=== PATIENT | female | born 1995 ===

== ENCOUNTER 2017-08-23 17:33 | Emergency (ER) | payer OTHER ==
[2017-08-23 18:16] VITALS: BP 133/82; PULSE 83; RESP 16; TEMP 98.7; O2SAT 97
--- NOTE | 2017-08-23 20:21 | ED PDOC ---
HPI: Abdomen Time Seen by Provider: 08/23/17 18:36 Chief Complaint (Nursing): Abdominal Pain Chief Complaint (Provider): abdominal pain History Per: Patient History/Exam Limitations: no limitations Additional Complaint(s): 22yo F in ED for eval of various complaints. Pt came from [place]. Pt was dx with dysautonomia, cyst vs adenoma in brain on MRI in 2014. PT in ED for 2 week with right arm pain swelling and redness after "popping" a cyst in her forearm. denies fever chills nausea or vomiting. PT not on control. no recent travel in past 3 months, no bleeding d/o or recent surgeries. pt states pain radiates up and down her right arm without radiation to chest. PT also c/o of irregular menstrual, persistent lactohrea and sciatic like pain on left LE x >6months. Abnormal Vaginal Bleeding: No Last Menstral Period: 2 weeks ago Past Medical History Reviewed: Historical Data, Nursing Documentation, Vital Signs Vital Signs: Last Vital Signs Temp 98.7 F 08/23/17 18:12 Pulse 83 08/23/17 18:12 Resp 16 08/23/17 18:12 BP 133/82 08/23/17 18:12 Pulse Ox 97 08/23/17 18:12 - Family History Family History: States: No Known Family Hx - Allergies Allergies/Adverse Reactions: Allergies Allergy/AdvReac Type Severity Reaction Status Date / Time No Known Allergies Allergy Verified 08/23/17 18:12 Review of Systems ROS Statement: Except As Marked, All Systems Reviewed And Found Negative Constitutional: Negative for: Fever, Chills Physical Exam - Reviewed Nursing Documentation Reviewed: Yes Vital Signs Reviewed: Yes - Physical Exam Appears: Positive for: Well, Non-toxic, No Acute Distress Head Exam: Positive for: ATRAUMATIC, NORMAL INSPECTION, NORMOCEPHALIC Skin: Positive for: Normal Color, Warm, DRY Eye Exam: Positive for: EOMI, Normal appearance, PERRL ENT: Positive for: Normal ENT Inspection Neck: Positive for: Normal, Painless ROM Cardiovascular/Chest: Positive for: Regular Rate, Rhythm Respiratory: Positive for: CNT, Normal Breath Sounds Gastrointestinal/Abdominal: Positive for: Normal Exam, Bowel Sounds, Soft. Negative for: Tenderness Back: Positive for: Normal Inspection Extremity: Positive for: Other (right arm: no bdonoraml swelling noted, mild spasm noted to forearm compared to left. nuerovasc intact. tenderness noted on palapation. no reddness no warmth. 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 Negative for: Motor/Sensory Deficits - ECG O2 Sat by Pulse Oximetry: 97 - Progress ED Course And Treament: Orders Category Date Time Status EKG [ELECTROCARDIOGRAM] Stat Cardiology 08/23/17 19:27 Ordered COMP METABOLIC PANEL Stat Chem 08/23/17 19:51 Ordered TROPONIN I Stat Chem 08/23/17 19:51 Ordered ED Urine (POC) Stat ED Care 08/23/17 19:27 Uncollected EKG-ED [[id number]] STAT ED Care 08/23/17 19:27 Active CBC (WITH DIFFERENTIAL) Stat BILLY 08/23/17 19:51 Ordered URINALYSIS Stat URINALYSIS 08/23/17 20:06 Ordered DUPLEX UPPER EXTRM VEIN RIGHT [US] Stat US 08/23/17 20:11 Ordered Disposition - Clinical Impression Clinical Impression: Arm pain - Patient ED Disposition Is Patient to be Admitted: Transfer of Care Counseled Patient/Family Regarding: Studies Performed, Diagnosis, Need For Followup, Rx Given - Disposition Disposition Time: 20:23 Condition: STABLE Patient Signed Over To: Suzie Whalen
[2017-08-23 20:23] LABS: BASO % 0.2 % (0.0-2.0); EOS # 0.1 K/uL (0.0-0.7); EOS % 1.6 % (0.0-4.0); HEMOGLOBIN 14.3 g/dL (12.0-16.0); LYMPH # 2.5 K/uL (1.0-4.3); LYMPH % 34.7 % (20.0-40.0); MEAN CELL VOLUME 85.9 fl (81.0-99.0); MEAN CORPUSCULAR HEMOGLOBIN 29.3 pg (27.0-31.0); MEAN CORPUSCULAR HGB CONC 34.1 g/dL (33.0-37.0); MEAN PLATELET VOLUME 7.9 fl (7.2-11.7); MONO # 0.5 K/uL (0.0-0.8); MONO % 7.3 % (0.0-10.0); NEUT % 56.2 % (50.0-75.0); NRBC % 0.1 % (0.0-0.0); RBC 4.88 Mil/uL (3.80-5.20); RED CELL DISTRIBUTION WIDTH 13.2 % (11.5-14.5); WHITE BLOOD COUNT 7.2 K/uL (4.8-10.8)
[2017-08-23 20:27] LABS: ALB/GLOB RATIO 1.3 (1.0-2.1); ALBUMIN 4.6 g/dL (3.5-5.0); ALT/SGPT 43 U/L (9-52); AST/SGOT 27 U/L (14-36); BLOOD UREA NITROGEN 10 mg/dl (7-17); CALCIUM 9.7 mg/dL (8.4-10.2); GFR AFRICAN-AMERICAN > 60; GFR NON-AFRICAN AMERICAN > 60
[2017-08-23 20:54] LABS: SQUAMOUS EPITHIAL 12 /hpf (0-5); URINE BACTERIA OCC (<OCC); URINE BILIRUBIN NEGATIVE (NEGATIVE); URINE BLOOD NEGATIVE (NEGATIVE); URINE CLARITY CLOUDY (Clear); URINE COLOR YELLOW (YELLOW); URINE GLUCOSE (UA) NEG (Normal); URINE LEUKOCYTE ESTERASE LARGE Leu/uL (Negative); URINE NITRATE NEGATIVE (NEGATIVE); URINE PROTEIN NEGATIVE (NEGATIVE); URINE UROBILINOGEN 0.2-1.0 mg/dL (0.2-1.0)
--- NOTE | 2017-08-23 21:41 | ED PDOC ---
- Laboratory Results Result Diagrams: 08/23/17 20:12 08/23/17 20:12 - ECG O2 Sat by Pulse Oximetry: 97 - Progress ED Course And Treament: Case endorsed to comic writer from Jessica ARELLANO pending labs, u/s EXAM: US Duplex Right Upper Extremity Veins CLINICAL HISTORY: 22 years old, female; Signs and symptoms; Swelling of limb; Upper extremity, right; Additional info: Swelling pain TECHNIQUE: Real-time ultrasound scan of the veins of the right upper extremity with color Doppler flow, spectral waveform analysis and compression. COMPARISON: No relevant prior studies available. FINDINGS: Deep veins: Unremarkable. No DVT in the internal jugular, subclavian, axillary, or brachial veins. The veins demonstrate normal color flow, are normally compressible, with normal phasic flow and/or augmentation response. Superficial veins: Unremarkable. No thrombus in the visualized basilic and cephalic veins. Soft tissues: No acute findings. IMPRESSION: Normal right upper extremity duplex venous ultrasound. Patient educated on findings, discharged with rx Macrobid (dose given in ED) Advised Ibuprofen PRN arm pain. Follow up [facility]. Return precautions given. Disposition - Clinical Impression Clinical Impression: Arm pain, UTI (urinary tract infection) - POA Present On Arrival: None - Disposition Referrals: [facility] [Outside] Disposition: Routine/Home Disposition Time: 22:45 Condition: STABLE Prescriptions: Nitrofurantoin Macrocrystals [Macrobid] 100 mg PO BID #13 cap Instructions: Urinary Tract Infection in Women (ED), Arm Pain (ED) Forms: [employer] (Nepali) Print Language: SYRIAN
--- NOTE | 2017-08-24 10:56 | CARD ---
APPROVED REPORT EKG Measurement Heart [id number] <Conclusion> Normal sinus rhythm Normal ECG
--- NOTE | 2017-08-24 11:21 | US ---
PROCEDURE: Right lower extremity venous duplex Doppler. HISTORY: swelling pain COMPARISON: None available. TECHNIQUE: Common femoral, superficial femoral, popliteal and posterior tibial veins were evaluated. Flow was assessed with color Doppler, compressibility, assessment of phasic flow and augmentation response. FINDINGS: COMMON FEMORAL VEIN: Normal direction of flow, compressibility and augmentation response. SUPERFICIAL FEMORAL VEIN: Normal direction of flow, compressibility and augmentation response. POPLITEAL VEIN: Normal direction of flow, compressibility and augmentation response. POSTERIOR TIBIAL VEIN: Normal direction of flow, compressibility and augmentation response. OTHER FINDINGS: None. IMPRESSION: No evidence of deep venous thrombosis in the right lower extremity.
== END 2017-08-23 22:48 | disposition home or self-care (01) ==
LOC: H.ER 17:33
DX: N39.0 Urinary tract infection, site not specified (principal); M76.01 Gluteal tendinitis, right hip